=== PATIENT | female | born 1970 | race Caucasian/White ===

== ENCOUNTER 2024-01-12 14:17 | Outpatient (CLI) | payer BC, SELFPAY ==
--- NOTE | ~2024-01-12 | CT_ITS ---
EXAMINATION: CT abdomen pelvis wo con DATE: 01/12/2024 14:34 INDICATION: Left lower quadrant pain. Diverticulitis. TECHNIQUE: Computed tomography (CT) of the abdomen and pelvis was performed without intravenous contr ast. The dose-length product was 692.64 mGy-cm. Automated exposure control and iterative reconstructi on technique were employed. COMPARISON: None. FINDINGS: Lung bases unremarkable. Heart size normal. No significant pleural or pericardial effusion. The liver, spleen, pancreas, adrenal glands and kidneys are unremarkable. Gallbladder is present. Th ere is colonic diverticulosis. There is thickening of the proximal sigmoid colon with surrounding inf lammation, consistent with acute diverticulitis. No evidence for abscess or free air. No significant vascular abnormality. No lymphadenopathy. Bladder is present. There is an IUD in the uterus. No free air. IMPRESSION: 1. Acute uncomplicated diverticulitis. Reviewed, dictated and finalized at location B.
== END 2024-01-12 14:18 ==
PROVIDERS: Visit Provider Family Medicine
DX: K57.32 Diverticulitis of large intestine without perforation or abscess without bleeding (principal)
CPT/HCPCS: 74176